=== PATIENT | female | born 1980 | race Caucasian/White ===

== ENCOUNTER → 2020-01-13 | Outpatient (CLI) | payer OTHER ==
[~2020-01-13] MED LIST: ACCUNEB SO1.25 MG/1 INH; ACETAMINOPHEN-1 EAC1 PO; BENTYL20 MG PO; CELEXA40 MG; COLACE 100 MG100 MG PO; DULERA 100 MCG/13 GM INH; FLONASE 0.05%50 MCG NASAL; FLOXIN OTI0.3 %/5 M1 OT; MAGOX 400400 MG PO; MELATONIN3 MG; NECON1 EAC2 PO; NORCO 5-325 TA1 EACH PO; NORTRIPTYLINE H25 M3 PO; OMEPRAZOLE 20 M20 M1; OMEPRAZOLE40 MG PO; SUPER B-50 COM1 EACH PO; VITAMIN D1000 UNI1 PO; XANAX XR0.5 MG
== END ==
LOC: M.ULTRA 08:49
PROVIDERS: ATTEND Family Medicine
DX: R16.1 Splenomegaly, not elsewhere classified (principal)

== ENCOUNTER → 2020-05-04 | Outpatient (CLI) | payer OTHER ==
[~2020-05-04] MED LIST changes: +AMITRIPTYLINE H25 M3; +CELEXA 20 MG TA20 MG PO; +CLOBETASOL 0.0560 GM; +FLEXERIL PO; +LYRICA150 MG PO; +MULTI-VITAMIN1 EAC5 PO; +PAMELOR10 MG PO; +PROAIR DIGIHAL90 MCG IH; +PROAIR HFA8.5 GM INH
== END ==
LOC: M.LAB 12:41
PROVIDERS: ATTEND Family Medicine
DX: M79.7 Fibromyalgia (principal)

== ENCOUNTER → 2020-05-26 | Outpatient (CLI) | payer OTHER | LOC: M.MRI 08:02 | PROVIDERS: ATTEND Family Medicine | DX: M50.31 Other cervical disc degeneration, high cervical region (principal); M47.812 Spondylosis without myelopathy or radiculopathy, cervical region; J01.00 Acute maxillary sinusitis, unspecified; H53.9 Unspecified visual disturbance; R42 Dizziness and giddiness ==

== ENCOUNTER → 2020-06-21 | Outpatient (CLI) | payer OTHER | LOC: M.ULTRA 09:08 | PROVIDERS: ATTEND Family Medicine | DX: R60.9 Edema, unspecified (principal) ==

== ENCOUNTER → 2020-06-28 | Outpatient (CLI) | payer OTHER | LOC: M.ULTRA 12:45 | PROVIDERS: ATTEND Family Medicine | DX: R60.0 Localized edema (principal) ==

== ENCOUNTER → 2020-07-13 | Outpatient (CLI) | payer OTHER | LOC: M.ULTRA 13:00 | PROVIDERS: ATTEND Family Medicine | DX: M79.604 Pain in right leg (principal); M79.605 Pain in left leg; M79.89 Other specified soft tissue disorders ==

== ENCOUNTER → 2020-07-26 | Outpatient (CLI) | payer OTHER ==
[~2020-07-26] MED LIST changes: +ALPRAZOLAM 0.50.5 M1 PO; +IRON325 PO; +LYRICA 75 MG CA75 MG PO; +MAGNESIUM250 M1 PO; +NORCO5 PO; +PROVENTIL HFA6.7 G1 INH; +SENNA PLUS TAB1 EACH PO
== END ==
LOC: M.CT 10:05
PROVIDERS: ATTEND Family Medicine
DX: K76.0 Fatty (change of) liver, not elsewhere classified (principal); N83.8 Other noninflammatory disorders of ovary, fallopian tube and broad ligament; I87.8 Other specified disorders of veins; R60.9 Edema, unspecified; Z68.35 Body mass index [BMI] 35.0-35.9, adult; Z88.2 Allergy status to sulfonamides; Z88.8 Allergy status to other drugs, medicaments and biological substances; Z79.899 Other long term (current) drug therapy; Z87.891 Personal history of nicotine dependence

== ENCOUNTER 2020-10-02 21:03 | Observation (INO) | payer OTHER ==
[~2020-10-02] VITALS: Ht 175.3 cm; Wt 113.4 kg
[2020-10-02 21:40] VITALS: BP 149/82
[2020-10-02 22:36] LABS: ABSOLUTE BASOPHILS 0.1 thou/uL (0.0-0.2); ABSOLUTE EOSINOPHILS 0.3 thou/uL (0.0-0.7); ABSOLUTE MONOCYTES 0.7 thou/uL (0.0-1.2); ABSOLUTE NEUTROPHILS 6.9 thou/uL (1.6-8.1); EOSINOPHILS 3.4 %; HEMATOCRIT 38.2 % (37.0-47.0); HEMOGLOBIN 12.8 gm/dL (12.0-15.0); LYMPHOCYTES 19.5 %; MCH 27.1 pg (26.0-34.0); MCHC 33.4 g/dL (28.0-37.0); MCV 81.2 fL (80.0-100.0); MONOCYTES 7.2 %; MPV 8.7 fl. (7.2-11.1); NUCLEATED RBCS 0 /100WBC; PLATELET COUNT* 300 thou/uL (150-400); POLYS 68.9 %; RBC 4.71 mil/uL (4.20-5.00); RDW-CV 15.7 % (10.5-14.5); WBC 10.1 thou/uL (4.0-11.0)
[2020-10-02 22:40] LABS: CALCIUM 8.5 mg/dL (8.5-10.1); CREATININE 0.7 mg/dL (0.6-1.3); POTASSIUM 3.3 mmol/L (3.5-5.1)
[2020-10-02 22:44] LABS: ALBUMIN 3.2 g/dL (3.4-5.0); TOTAL BILIRUBIN 0.3 mg/dL (<0.1-1.0); TOTAL PROTEIN 7.2 g/dL (6.4-8.2)
[2020-10-03 04:33] LABS: URINE BILIRUBIN NEGATIVE (Negative); URINE BLOOD NEGATIVE (Negative); URINE CLARITY CLEAR; URINE COLOR YELLOW; URINE GLUCOSE-RANDOM NEGATIVE (Negative); URINE KETONES NEGATIVE (Negative); URINE LEUKOCYTES-REFLEX NEGATIVE (Negative); URINE NITRITE-REFLEX NEGATIVE (Negative); URINE PROTEIN NEGATIVE (Negative); URINE SPECIFIC GRAVITY <= 1.005 (1.005-1.030); URINE UROBILINOGEN 0.2 E.U./dl (0.2-1.0)
[2020-10-03 06:29] VITALS: BP 112/69
[2020-10-03 09:54] VITALS: BP 124/80
--- NOTE | 2020-10-03 10:39 | NUR ---
Admission Assessment Admitted from home Mental Status upon admission Alert & Oriented x Living Arrangements: Stairs Elevator House Lives with: or they live with patient Support system: Name Phone number Relationship Su Daniels [phone] mom Can patient return to prior living arrangements? Yes Notes: Activities of daily living: Independent Assistive device: No Prior resource use: None Notes: No past hx HH , SNU or ARU
[2020-10-03 10:40] VITALS: BP 126/81
--- NOTE | 2020-10-03 12:01 | EKG ---
[place] [address] ELECTROCARDIOGRAM REPORT Name: DEWAYNE CRUZ Room: [address]#: [id number] Admission: 10/03/20 Attend Phys: Jovani Saldana Discharge: Date of : 78 Date of Service: 10/02/202151 Report #: [id number] THIS REPORT FOR: //name// [facility] ED Test Date: 2020-10-02 Test Time: 21:52:24 Pat Name: DEWAYNE CRUZ Department: Room: [facility] Gender: F [employer]ist: MR : 1980 Requested By: Afia Camilo Order Number: [id number] MD: Walter Arauz Measurements Intervals [place] Rate: 90 P: 67 NM: 134 QRS: 48 QRSD: 98 T: 19 QT: 359 QTc: 440 Interpretive Statements Sinus rhythm Nonspecific T abnormalities, anterior leads No previous ECG available for comparison Electronically Signed On 10-03-2020 12:01:40 CDT by Walter Arauz [email or web address] <ELECTRONICALLY SIGNED> By: Walter Arauz MD, [facility] 10/03/20 1201 51 51 Walter Arauz MD, [facility] /EPI
[2020-10-03 16:09] VITALS: BP 126/81
--- NOTE | 2020-10-03 16:30 | NUR ---
PT A&OX4 VSS. PT UP AD DAVE, GAIT STEADY. IV TO ALICJA MCNEIL ARRIVING TO UNIT. LINE DC'D R/T INFILTRATION. NEW ACCESS PLACED TO LFA BY FRIDA ROMO. NS RUNNING AT 100ML/HOUR. PT REPORTS BM X2. DIET ADVANCED BY DR VICTOR AND PT AWARE. PT SATS >95% ON ROOM AIR. PT STATES UNDERSTANDING OF DC INSTRUCTIONS. PT IV DC'D PRIOR TO PT LEAVING UNIT. PT DRESSED INDEPENDENTLY. PT LEAVES UNIT IN WHEELCHAIR TRANSPORTED BY NURSING STAFF.
== END 2020-10-03 16:48 | disposition home or self-care (01) ==
LOC: M.ERS 21:03 → M.2W 10-03 02:43 → M.TBA-ER 10-03 02:43 → M.2W 10-03 10:24
PROVIDERS: Emergency Medicine; ADMIT Internal Medicine; ATTEND Internal Medicine
DX: R10.9 Unspecified abdominal pain (principal); Z20.822 Contact with and (suspected) exposure to COVID-19; E87.6 Hypokalemia; M79.7 Fibromyalgia; F32.9 Major depressive disorder, single episode, unspecified; F41.9 Anxiety disorder, unspecified; E66.9 Obesity, unspecified; K21.9 Gastro-esophageal reflux disease without esophagitis; Z79.899 Other long term (current) drug therapy

== ENCOUNTER 2020-12-27 12:14 | Observation (INO) | payer OTHER ==
[~2020-12-27] VITALS: Ht 175.3 cm; Wt 116.1 kg
--- NOTE | ~2020-12-27 | OP ---
[facility] [address] [place] [address] OPERATIVE REPORT Name: DEWAYNE CRUZ Room: [address] M.R.#: [id number] Admission: 12/27/20 Attend Phys: Gigi Anderson Discharge: Date of : 78 Report #: [id number] THIS REPORT FOR: cc: Lee Arambula Adam J DO Patterson,Gigi Langley MD ~ DATE OF SURGERY: 12/28/2020 PREOPERATIVE DIAGNOSIS: Incarcerated ventral incisional hernia. POSTOPERATIVE DIAGNOSIS: Incarcerated ventral incisional hernia. OPERATION: Laparoscopic repair of incarcerated ventral incisional hernia with mesh. SURGEON: Gigi Anderson MD. ANESTHESIA: General. ESTIMATED BLOOD LOSS: Minimal. SPECIMENS: None. DESCRIPTION OF PROCEDURE: After informed consent was obtained, the patient was brought to the operating room and placed supine. SCDs were placed and working, preoperative antibiotics were administered, general anesthesia was induced. The abdomen was prepped and draped in the usual sterile fashion. A 5 mm incision was made in the left upper quadrant. A 5 mm trocar was placed under direct vision. Pneumoperitoneum was established. A left lower quadrant 8 mm trocar was placed and a 5 mm right-sided trocar was placed. The patient had incarcerated preperitoneal fat in the midline. This was all reduced. The hernia defect measured approximately 1 x 1 cm. A 11 cm Bard Ventralight mesh was inserted. It was brought up to the abdominal wall. It was tacked with 30 absorbable tacks. I then placed a transfascial 2-0 Ethibond suture in the mesh as well using a suture passer. The ports were removed under direct vision. The skin was closed with 4-0 Monocryl. Incisions were dressed with Steri-Strips. COMPLICATIONS: None. DISPOSITION: The patient was taken to recovery in satisfactory condition. By: [id number] Anderson MD /lorenzo
[2020-12-27 12:27] VITALS: BP 119/77
[2020-12-27] MEDS ORDERED: VITAMIN D-40010 MCG PO (12:31)
[2020-12-27] MEDS ORDERED: KLOR-CON 10 ER10 MEQ PO (12:31)
[2020-12-27 12:46] LABS: URINE BILIRUBIN NEGATIVE (Negative); URINE BLOOD TRACE (Negative); URINE CLARITY CLEAR; URINE COLOR YELLOW; URINE GLUCOSE-RANDOM NEGATIVE (Negative); URINE KETONES NEGATIVE (Negative); URINE LEUKOCYTES-REFLEX NEGATIVE (Negative); URINE NITRITE-REFLEX NEGATIVE (Negative); URINE PROTEIN NEGATIVE (Negative); URINE SPECIFIC GRAVITY >= 1.030 (1.005-1.030); URINE UROBILINOGEN 0.2 E.U./dl (0.2-1.0)
[2020-12-27 13:01] LABS: ABSOLUTE BASOPHILS 0.2 thou/uL (0.0-0.2); ABSOLUTE EOSINOPHILS 0.3 thou/uL (0.0-0.7); ABSOLUTE MONOCYTES 0.9 thou/uL (0.0-1.2); BASOPHILS 1.3 %; EOSINOPHILS 2.2 %; HEMATOCRIT 37.9 % (37.0-47.0); HEMOGLOBIN 12.6 gm/dL (12.0-15.0); LYMPHOCYTES 22.6 %; MCH 27.3 pg (26.0-34.0); MCHC 33.3 g/dL (28.0-37.0); MCV 81.9 fL (80.0-100.0); MPV 8.7 fl. (7.2-11.1); NUCLEATED RBCS 0 /100WBC; PLATELET COUNT* 299 thou/uL (150-400); POLYS 66.9 %; RBC 4.62 mil/uL (4.20-5.00); RDW-CV 15.7 % (10.5-14.5); WBC 13.4 thou/uL (4.0-11.0)
[2020-12-27 13:09] LABS: CREATININE 0.8 mg/dL (0.6-1.3); POTASSIUM 3.9 mmol/L (3.5-5.1)
[2020-12-27 13:13] LABS: ALBUMIN 3.8 g/dL (3.4-5.0); TOTAL BILIRUBIN 0.3 mg/dL (<0.1-1.0); TOTAL PROTEIN 7.6 g/dL (6.4-8.2)
[2020-12-27 20:00] VITALS: BP 130/78
[2020-12-27 20:22] VITALS: BP 139/84
--- NOTE | 2020-12-28 05:35 | NUR ---
ALTERNATING NORCO, MORPHINE AND ZOFRAN FOR COMFORT AND NAUSEA CONTROL. SHE IS UP STANDBY TO RESTROOM, ALERT AND ORIENTED, ROOM AIR. PAIN IN UPPER RIGHT QUADRANT. NPO SINCE BEFORE MIDNIGHT HAD 2 SIPS TO TAKE PAIN MEDS OTHERWISE COMPLIANT WITH ORDERS.
[2020-12-28 10:35] VITALS: BP 116/74
[2020-12-28 16:00] VITALS: BP 120/72
--- NOTE | 2020-12-28 19:34 | NUR ---
PT WAS OFF THE UNIT FOR SURGERY WHEN THIS RN STARTED. PT WAS BROUGHT UP PER BED AT 1055 AM. PT IS REALLY IN A LOT OF ABD PAIN. PT HAS HAD TO HAVE MORPHINE AND HYDROCODONE EVERY 3 TO 4 HOURS. PT VSS AFEBRILE. SALINE LOCK IN HER RIGHT AC, FLUSHES WELL. PT UP TO BATHROOM WITH SBA. PT ATE HER SUPPER THIS PM THEN CALLED OUT FOR NAUSEA MEDICATIONS. WILL CONTINUE TO MONITOR PLAN OF CARE.
[2020-12-28 20:00] VITALS: BP 121/67
[2020-12-28 23:11] VITALS: BP 115/58
[2020-12-29 04:07] VITALS: BP 100/62
--- NOTE | 2020-12-29 06:54 | NUR ---
Alert and oriented x 4. She has lapsites x 5 with steristrips, from ventral hernia repair. She also had 2 small, healed, lapsites on the front side of abdomen that she states she had linx procedure, that has something to do with inserting magnets for GERD. She is up independently in the room to the bathroom. She is voiding well. She has been taking pain meds x 6. She had nausea x 2. She hasn't slept. New order for benadryl.
[2020-12-29 09:41] VITALS: BP 123/74
[2020-12-29 11:15] VITALS: BP 123/74
[2020-12-29 11:36] VITALS: BP 118/64
--- NOTE | 2020-12-29 12:09 | NUR ---
PT DC AT 1208 BY WHEELCHAIR WITH NURSING STAFF AND MOTHER TO HOME. IV OUT. PAIN CONTROLLED. PAPER SCRIPT AND DC PAPERS GIVEN TO PT. PT STABLE UPON DISCHARGE. PERSONAL BELONINGS SENT WITH PT. INCISION SITES C/D/I.
--- NOTE | 2020-12-29 16:17 | NUR ---
Case and plan of care reviewed with physician each weekday during patient's length of stay. Plan is for .. Discharge today No Needs identified.
== END 2020-12-29 12:11 | disposition home or self-care (01) ==
LOC: M.ERS 12:14 → M.TBA-ER 15:24 → M.3W 15:24
PROVIDERS: Physician Assistant; ADMIT Surgery; ATTEND Surgery
DX: K43.6 Other and unspecified ventral hernia with obstruction, without gangrene (principal); Z20.822 Contact with and (suspected) exposure to COVID-19; K21.9 Gastro-esophageal reflux disease without esophagitis; J45.909 Unspecified asthma, uncomplicated; F41.9 Anxiety disorder, unspecified; F32.9 Major depressive disorder, single episode, unspecified; Z87.891 Personal history of nicotine dependence; Z79.899 Other long term (current) drug therapy

== ENCOUNTER → 2021-01-17 | Outpatient (CLI) | payer OTHER ==
[~2021-01-17] MED LIST changes: +KLOR-CON 10 ER10 MEQ PO; +VITAMIN D-40010 MCG PO
== END ==
LOC: M.ULTRA 07:51
PROVIDERS: ATTEND Family Medicine
DX: K76.0 Fatty (change of) liver, not elsewhere classified (principal); R16.0 Hepatomegaly, not elsewhere classified

== ENCOUNTER → 2021-01-29 | Outpatient (CLI) | payer OTHER | LOC: M.CT 06:42 | PROVIDERS: ATTEND Family Medicine | DX: K76.0 Fatty (change of) liver, not elsewhere classified (principal); R93.2 Abnormal findings on diagnostic imaging of liver and biliary tract ==